=== PATIENT | male | born 1950 | race African-American/Black ===

== ENCOUNTER 2020-02-24 17:01 | Inpatient (IN) | payer MEDICARE, SELFPAY ==
--- NOTE | ~2020-02-24 | XR_ITS ---
EXAMINATION: XR chest 1V portable EXAM DATE: 02/24/2020 17:38 INDICATION: Shortness of breath fever and weakness. TECHNIQUE: Portable AP frontal chest x-ray was obtained. There is no prior study for comparison. FINDINGS: There is approximately 5 cm region of airspace disease in the right midlung zone, appearanc e most consistent with acute bacterial pneumonia. Please clinically correlate. No pleural effusion or pneumothorax. Cardiomediastinal silhouette is normal. There are no osseous abnormalities identified. IMPRESSION: Subsegmental right midlung zone airspace disease probably acute, probably pneumonia. Rec ommend one-month follow-up x-ray to exclude chronic process. Reviewed, dictated and finalized at location A. IMPRESSION: Subsegmental right midlung zone airspace disease probably acute, p robably pneumonia. Recommend one-month follow-up x-ray to exclude chronic proce ss.
--- NOTE | ~2020-02-24 | XR_ITS ---
XR chest 2V DATE: 02/26/2020 08:08 INDICATION: Persistent fever TECHNIQUE: PA and lateral views COMPARISON: 02/24/2020 portable upright AP chest FINDINGS: There is persistent patchy consolidation of the middle lobe, without demonstrable interval radiographic improvement since 03/05/2020 at 1730 hours. The lungs are otherwise clear. Slight right pleural effusion is suggested. Normal heart size. Aortic calcification and unfolding. IMPRESSION: Persistent patchy middle lobe consolidation, stable since 03/05/2020 Reviewed, dictated and finalized at location A.
[2020-02-24 17:06] VITALS: BP 140/82; PULSE 102; RESP 17; TEMP 39.8; O2SAT 99
--- NOTE | 2020-02-24 17:09 | ECG_ITS ---
Measurements Intervals [place] Rate: 99 P: 17 TN: 156 QRS: -30 QRSD: 81 T: 11 QT: 308 QTc: 396 Interpretive Statements SINUS RHYTHM EARLY PRECORDIAL R/S TRANSITION VOLTAGE CRITERIA FOR LVH BORDERLINE T WAVE ABNORMALITY- INFERIOR LEADS BORDERLINE ECG Electronically Signed On 02-24-2020 17:33:57 CDT by Nathen Escalante D.O.
[2020-02-24 17:20] VITALS: BP 153/96; PULSE 100; RESP 22; TEMP 39.2; O2SAT 95
[2020-02-24 17:24] LABS: Basophils Percent Auto 0.2 % (0.2-1.2); Eosinophils Percent Auto 0.2 % (0-4.4); Hematocrit 34.1 % (42.0-52.0); Hemoglobin 11.2 g/dL (14.0-18.0); Immature Granulocyte Absolute 0.03 K/mm3 (0.00-0.031); Immature Granulocyte Percent A 0.3 % (0-0.5); Lymphocytes Absolute Auto 0.88 K/mm3 (0.9-3.2); Lymphocytes Percent Auto 7.4 % (18.3-44.2); Mean Corpuscular HGB Conc 32.8 g/dl (32-36); Mean Corpuscular Hemoglobin 28.7 pg (26-34); Mean Corpuscular Volume 87.4 fl (80-100); Monocytes Absolute Auto 0.9 K/mm3 (0.1-0.6); Monocytes Percent Auto 7.7 % (2.6-8.5); Neutrophils Percent Auto 84.2 % (45.5-73.1); Platelet Count Result 190 k/mm3 (150-375); Red Cell Distribution Width 14.9 % (11.5-14.5); White Blood Count 11.9 K/mm3 (4.5-10.0)
[2020-02-24 17:36] LABS: Anion Gap 12 mmol/L (8-16); Blood Urea Nitrogen 47 mg/dL (9-20); Calcium 9.4 mg/dL (8.4-10.2); Carbon Dioxide 20 mmol/L (22-30); Chloride 104 mmol/L (98-107); Estimated CRCL calculation 20 ml/min; Estimated Glomerular Filt Rate 21; Glucose 110 mg/dL (75-110); Potassium 4.7 mmol/L (3.4-5.0); Sodium 136 mmol/L (137-145)
[2020-02-24] MEDS: ACETAMINOPHEN 500 MG TABLET 1000 MG PO (17:43)
--- NOTE | 2020-02-24 17:51 | ED.FEVER ---
HPI - Fever General Chief Complaint: Fever Stated Complaint: weakness, wants tested for COVID Time Seen by Provider: 02/24/20 17:23 History of Present Illness HPI Narrative: Feeling weak for the past few days. Associated with dyspnea on exertion. Found to be febrile in triage. Denies cough, congestion, nausea, vomiting, back pain, urtinary symptoms, rashes, or wounds. Related Data Home Medications Medication Instructions Recorded Confirmed allopurinol 02/24/20 amlodipine 02/24/20 bumetanide 02/24/20 calcitriol 02/24/20 carvedilol 02/24/20 ferrous sulfate 325 mg PO DAILY 02/24/20 fludrocortisone mg 02/24/20 Allergies Allergy/AdvReac Type Severity Reaction Status Date / Time Penicillins Allergy Unknown Verified 02/24/20 17:18 Review of Systems Review of Systems: All systems reviewed & are unremarkable except as noted in HPI and below Cardiovascular: Cardiovascular: Denies chest pain PMFSH Past Medical History Medical History (Updated 02/24/20 @ 18:37 by Sidney Galeano MD) HTN (hypertension) Social History Social History Gender identity (if verbalized by the patient): Male Exam Const: General: no acute distress and alert Nutritional Appearance: well nourished Orientation/consciousness: patient oriented x3 HENMT: Head: normal to inspection and contusion Chest: Chest palpation & inspection: normal inspection of the chest and no tenderness Resp: Effort & Inspection: normal respiratory effort Auscultation: wheezes right lower Cardio: Rate: regular rate Rhythm: regular rhythm GI: Inspection: non-distended GI Palp: Yes Soft to palpation and No Tenderness to palpation present (GI) Skin: General skin exam: normal color Rashes: no rashes Wounds: no wounds Neuro: General: patient oriented x3, moves all extremities and CN's II-XI intact bilaterally Speech: normal speech Extrem: General: normal to inspection and no edema Course Vital Signs Vital signs: Vital Signs Temperature 39.8 C H 02/24/20 17:06 Pulse Rate 102 H 02/24/20 17:06 Respiratory Rate 17 02/24/20 17:06 Blood Pressure 140/82 02/24/20 17:06 Pulse Oximetry 99 02/24/20 17:06 Temperature 39.2 C H 02/24/20 17:20 Pulse Rate 87 02/24/20 19:06 Respiratory Rate 25 H 02/24/20 19:06 Blood Pressure 132/81 02/24/20 19:06 Pulse Oximetry 95 02/24/20 19:06 MDM - Fever MDM Narrative Medical decision making narrative: He meets sepsis criteria. Chest x-ray concerning for pneumonia. Will test for covid and get cultures. ABX started. Creatinine 3.5. unsure if this is new. Will continue to hydrate. Medical Records Attestation: I reviewed the patient's medical records. Lab Data Attestation: I reviewed the patient's lab results. Result diagrams: 02/24/20 17:12 02/24/20 17:12 Labs: Lab Results 02/24/20 02/24/20 02/24/20 Range/Units 17:12 17:12 17:44 WBC 11.9 H (4.5-10.0) K/mm3 RBC 3.90 L (4.6-6.20) M/mm3 Hgb 11.2 L (14.0-18.0) g/dL Hct 34.1 L (42.0-52.0) % MCV 87.4 (80-100) fl MCH 28.7 (26-34) pg MCHC 32.8 (32-36) g/dl RDW 14.9 H (11.5-14.5) % Plt Count 190 (150-375) k/mm3 MPV 12.0 H (7.4-10.4) fl Immature Gran % (Auto) 0.3 (0-0.5) % Neut % (Auto) 84.2 H (45.5-73.1) % Lymph % (Auto) 7.4 L (18.3-44.2) % [place] % (Auto) 7.7 (2.6-8.5) % Eos % (Auto) 0.2 (0-4.4) % Baso % (Auto) 0.2 (0.2-1.2) % Lymph # (Auto) 0.88 L (0.9-3.2) K/mm3 [place] # (Auto) 0.9 H (0.1-0.6) K/mm3 Eos # (Auto) 0.0 (0-0.3) K/mm3 Baso # (Auto) 0.0 (0.0-0.1) K/mm3 Abs Immat Gran (auto) 0.03 (0.00-0.031) K/mm3 Absolute Neuts (auto) 10.0 H (1.3-6.7) K/mm3 Absolute Nucleated RBC 0.0 (0.0-0.012) K/mm3 Nucleated RBC % 0.0 (0.0-0.2) % Sodium 136 L (137-145) mmol/L Potassium 4.7 (3.4-5.0) mmol/L Chloride 104 (9
[2020-02-24] MEDS: SODIUM CHLORIDE 0.9% IV 1,000 ML 999 ML IV CONT (18:19)
[2020-02-24 18:21] VITALS: BP 140/83; PULSE 91; RESP 28; O2SAT 95
[2020-02-24 19:06] VITALS: BP 132/81; PULSE 87; RESP 25; O2SAT 95
[2020-02-24 19:11] LABS: Add Urine Microscopic? YES; Appearance Urine Clear (Clear); Bilirubin Urine Negative (Negative); Blood Urine Negative (Negative); Color Urine Yellow (Yellow); Glucose Urine UA Negative (Negative); Ketones Urine Negative (Negative); Leukocyte Esterase Ur Negative LEU/UL (Negative); Mucus Urine Rare /lpf; Nitrate Urine Negative (Negative); Protein Urine 3+ mg/dL (Negative); RBC Urine 0-2 /hpf (0-2); Specific Grav Ur 1.018 (1.001-1.035); Urobilinogen Urine Negative mg/dL (<2.0)
[2020-02-24 19:26] LABS: Lactic Acid Reflex 0.6 mmol/L (0.7-2.1)
[2020-02-24 20:51] VITALS: BP 123/69; PULSE 94; RESP 20; TEMP 37.8; O2SAT 98
[2020-02-24 21:20] VITALS: BP 120/63; PULSE 83; RESP 18; TEMP 37.8; O2SAT 98; BMI 27.3
--- NOTE | 2020-02-24 21:20 | ADMGEN ---
This patient, Eliezer Mchugh, was admitted to [facility] Surg Room 328-01. Patient/family oriented to hospital policies and general routines including ID bracelet, bed and alarms, visiting hours, pain management, procedures, bathroom and other care routines, personal items, smoking policy, room service/diet, and visiting hours. Valuables list has been completed. Information on how to activate the Rapid Response Team has been discussed. Patient/Family are encouraged to report perceived risks to care and to ask questions if they do not understand what they are told or what they should do.
[2020-02-24] MEDS: LACTATED RINGERS 1,000 ML 100 ML IV CONT (21:29)
--- NOTE | 2020-02-24 22:38 | PM.IMHP ---
H&P: HPI History of Present Illness Date/Time: 02/24/20 22:45 Chief complaint: weakness Narrative: Eliezer Mchugh is a 69 year old male With a past medical history chronic kidney disease, hypertension and gout who presented to the ER with generalized weakness. The patient reports that he has been feeling more fatigued than usual over the last 4 days. He has noticed a little bit of shortness of breath but denies any cough prior to coming to the ER. Once he got to the ER he did developed a little bit of a cough. He reports that he chronically spitting up phlegm in the middle of the night but this is unchanged from his baseline. He had noticed having a little bit of chills over the last couple of days. He denies any chest pain. For the most part he has been social distant seeing and has only when out of the house to do routine grocery shopping. His daughter and grand children are visiting from [place]. None of them have been ill. he reports that he is usually relatively active in just does not feel like himself. He has been having a mild frontal headache but denies any vision changes. He reports feeling chilled currently and is asking for additional blankets. He has not taken anything at home for his symptoms. He has not noticed any eliciting or relieving factors. Review of Systems Review of Systems: Narrative: 12 systems were reviewed with pertinent positives and negatives per HPI. Except as documented in the HPI, all other systems were reviewed and are negative. 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 Father , in his late 70s Malignant neoplasm of prostate Sibling Breast cancer the patient is the oldest sibling. He has 1 sister who of breast cancer. One sister who is healthy. 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 Calli Gupta Code status: Full code. The patient does not have advanced directives. He would like his to be his surrogate decision maker. Smoking status: Never smoker Alcohol intake: current Alcohol use details: The patient drinks wine occasionally in moderation. Substance use: current Substance use type: marijuana Other substance usage details: usually smokes marijuana daily Last use: 02/21/2020 Living arrangements: with family Additional living arrangements comments: The patient lives with his of 51 years. They have 2 adult children who are healthy. 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 Gender identity (if verbalized by the patient): Male Spiritual care concerns: No Meds Home Medications and Allergies Home Medications Medication Instructions Recorded Confirmed Type allopurinol 300 mg PO DAILY 02/24/20 02/24/20 History amlodipine 10 mg PO DAILY 02/24/20 02/24/20 History bumetanide 1 mg PO EVERY OTHER DAY 02/24/20 02/24/20 History calcitriol 0.5 mcg PO DAILY 02/24/20 02/24/20 History carvedilol 25 mg PO BID 02/24/20 02/24/20 History ferrous sulfate 325 mg PO QMWF 0
[2020-02-25] VITALS (18 sets, daily range): BP systolic 123–159; BP diastolic 65–97; PULSE 80–102; RESP 16–18; TEMP 36.4–39.3; O2SAT 95–99
[2020-02-25] MEDS: carvediloL 25 MG TABLET PO ×3 (00:01→20:42)
[2020-02-25] MEDS: ACETAMINOPHEN 325 MG TABLET 650 MG PO ×4 (00:01→17:36)
[2020-02-25 06:44] LABS: Hematocrit 28.8 % (42.0-52.0); Hemoglobin 9.3 g/dL (14.0-18.0); Mean Corpuscular HGB Conc 32.3 g/dl (32-36); Mean Corpuscular Hemoglobin 28.1 pg (26-34); Mean Platelet Volume 11.3 fl (7.4-10.4); Platelet Count Result 142 k/mm3 (150-375); Red Blood Count 3.31 M/mm3 (4.6-6.20); Red Cell Distribution Width 14.5 % (11.5-14.5); White Blood Count 8.5 K/mm3 (4.5-10.0)
[2020-02-25 06:56] LABS: Anion Gap 6 mmol/L (8-16); Blood Urea Nitrogen 42 mg/dL (9-20); Calcium 8.7 mg/dL (8.4-10.2); Carbon Dioxide 23 mmol/L (22-30); Chloride 106 mmol/L (98-107); Estimated CRCL calculation 21 ml/min; Estimated Glomerular Filt Rate 23; Glucose 122 mg/dL (75-110); Potassium 4.1 mmol/L (3.4-5.0); Sodium 135 mmol/L (137-145)
[2020-02-25] MEDS: LACTATED RINGERS 1,000 ML 100 ML IV CONT (10:06)
[2020-02-25] MEDS: BUMETANIDE 1 MG TABLET PO (10:09)
[2020-02-25] MEDS: FLUDROCORTISONE ACETATE 0.1 MG TABLET PO (10:09)
[2020-02-25] MEDS: FERROUS SULFATE 324 MG TABLET PO (10:10)
[2020-02-25] MEDS: allopurinoL 300 MG TABLET PO (10:10)
[2020-02-25] MEDS: calcitrioL 0.25 MCG CAPSULE 0.5 MCG PO (10:10)
[2020-02-25] MEDS: amLODIPine BESYLATE 5 MG TABLET 10 MG PO (10:10)
[2020-02-25] MEDS: ENOXAPARIN 30 MG/0.3 ML SYRINGE SUB-Q (10:11)
[2020-02-25 12:13] LABS: SARS-CoV-2 RNA PCR Negative
--- NOTE | 2020-02-25 16:24 | PM.IMPN ---
Progress Note: A&P Assessment and Plan (1) Sepsis due to pneumonia: Code(s): J18.9 - Pneumonia, unspecified organism; A41.9 - Sepsis, unspecified organism Status: Acute Assessment and Plan: ----- patient is still febrile with rigors. It has not been 24 hours. his antibiotics were started last night at 7:00 p.m. so it has not been 24 hours with antibiotic therapy. At this time we will continue with antibiotics, antipyretics, and supportive care. COVID-19 is negative. If the patient does not improve, consider chest CT and broadening antibiotics. he has not had any sputum production. PE less likely since he is not hypoxic. Blood cultures pending , white blood cell count improved. (2) Chronic kidney disease: Code(s): N18.9 - Chronic kidney disease, unspecified Status: Acute Assessment and Plan: ----- improved from admission. He follows Dr. Goldstein routinely. His creatinine is usually around 3 According to the patient. monitor (3) CAP (community acquired pneumonia): Code(s): J18.9 - Pneumonia, unspecified organism Status: Acute Assessment and Plan: ----- see plan above. Time Spent With Patient Time with patient: 25 - 35 minutes Subjective Date/time seen: 02/25/20 16:24 Interval history: Pt is a 70-year-old male here for pneumonia. Patient was seen today and states he feels better than he did yesterday but not great. He says his cough and shortness of breath is less. He actually has no shortness of breath sitting and he has walked to the bathroom a few times and not had any than. He is not coughing up any phlegm. He complains of shaking chills and fevers. He denies chest pain, diarrhea, constipation, nausea or vomiting. He says he is eating and drinking well. He does mention that he has chronic kidney disease and his creatinine is usually around 3. He sees Dr. Goldstein and follows with him closely. Review of Systems Review of Systems: All systems reviewed & are unremarkable except as noted in HPI and below Exam Narrative: Exam Narrative: General: Well developed well nourished patient Resting in bed in NAD but with rigors HEENT: normocephalic Neck: supple Neuro: Alert and oriented x4 CV:RRR. Telemetry shows occasional PVCs. NSVT about 2 seconds also noted. Resp: no wheezing or rhonchi. Decreased breath sounds in the right lobe. Able to speak in full sentences without dyspnea on exertion Abd: Soft, non distended. No pain to palpation. Positive bowel sounds Extremities: No swelling, erythema, or pain to palpation. Objective Data Vital Signs Vital Signs: Vital Signs - 24 hr 02/24/20 17:06 02/24/20 17:20 02/24/20 18:21 Temperature 103.6 F H 102.5 F H Pulse Rate 102 H 100 91 Respiratory Rate 17 22 H 28 H Blood Pressure 140/82 153/96 H 140/83 Pulse Oximetry 99 95 95 02/24/20 19:06 02/24/20 20:51 02/24/20 21:20 Temperature 100.1 F H 100.1 F H Pulse Rate 87 94 83 Respiratory Rate 25 H 20 18 Blood Pressure 132/81 123/69 120/63 Pulse Oximetry 95 98 98 02/25/20 00:00 02/25/20 00:01 02/25/20 01:00 Temperature 101.1 F H 101.1 F H 99.4 F Pulse Rate 90 90 Respiratory Rate 18 Blood Pressure 144/76 H Pulse Oximetry 97 02/25/20 04:00 02/25/20 04:12 02/25/20 04:21 Temperature 100.4 F H 100.4 F H Pulse Rate 89 87 Respiratory Rate 18 Blood Pressure 146/81 H Pulse Oximetry 98 02/25/20 05:11 02/25/20 08:00 02/25/20 10:07 Temperature 99.6 F 102.7 F H 102.7 F H Pulse Rate 98 Respiratory Rate 18 Blood Pressure 159/82 H Pulse Oximetry 98 02/25/20 10:11 02/25/20 12:00 02/25/20 13:32 Temperature 102.0 F H 98.5 F Pulse Rate 91 80 Respiratory Rate 16 Blood Pressure 124/65 Pulse Oximetry 99 02/25/20 16:00 Temperature 100.3 F H Pulse Rate 102 H Respiratory Rate 18 Blood Pressure 154/97 H Pulse Oximetry 95 Intake/Output Intake/Output: Intake & Output 02/22/20 02/23/20 0
[2020-02-26] VITALS (11 sets, daily range): BP systolic 137–153; BP diastolic 76–81; PULSE 78–90; RESP 16–20; TEMP 36.5–37.2; O2SAT 97–99
[2020-02-26 06:15] LABS: Basophils Percent Auto 0.1 % (0.2-1.2); Eosinophils Absolute Auto 0.1 K/mm3 (0-0.3); Hematocrit 28.3 % (42.0-52.0); Hemoglobin 9.3 g/dL (14.0-18.0); Immature Granulocyte Absolute 0.03 K/mm3 (0.00-0.031); Immature Granulocyte Percent A 0.4 % (0-0.5); Lymphocytes Absolute Auto 0.63 K/mm3 (0.9-3.2); Lymphocytes Percent Auto 9.2 % (18.3-44.2); Mean Corpuscular HGB Conc 32.9 g/dl (32-36); Mean Corpuscular Hemoglobin 28.5 pg (26-34); Mean Corpuscular Volume 86.8 fl (80-100); Mean Platelet Volume 11.5 fl (7.4-10.4); Monocytes Absolute Auto 0.7 K/mm3 (0.1-0.6); Monocytes Percent Auto 10.8 % (2.6-8.5); Neutrophils Absolute Auto 5.4 K/mm3 (1.3-6.7); Neutrophils Percent Auto 78.5 % (45.5-73.1); Platelet Count Result 166 k/mm3 (150-375); Red Blood Count 3.26 M/mm3 (4.6-6.20); Red Cell Distribution Width 14.4 % (11.5-14.5); White Blood Count 6.9 K/mm3 (4.5-10.0)
[2020-02-26 06:24] LABS: INR 1.1; Prothrombin Time 13.5 Seconds (11.1-14.7)
[2020-02-26 06:25] LABS: Partial Thromboplastin Time 42.3 SECONDS (22.3-36.8)
[2020-02-26 07:18] LABS: Alanine Aminotransferase 21 U/L (4-50); Alkaline Phosphatase 74 U/L (38-126); Anion Gap 7 mmol/L (8-16); Aspartate Amino Transferase 31 U/L (17-59); Bilirubin,Total < 0.1 mg/dL (0.2-1.3); Blood Urea Nitrogen 43 mg/dL (9-20); Calcium 8.9 mg/dL (8.4-10.2); Carbon Dioxide 23 mmol/L (22-30); Chloride 106 mmol/L (98-107); Estimated CRCL calculation 23 ml/min; Estimated Glomerular Filt Rate 25; Glucose 112 mg/dL (75-110); Magnesium 2.2 mg/dL (1.6-2.3); Sodium 136 mmol/L (137-145)
[2020-02-26 07:34] LABS: Potassium 3.7 mmol/L (3.4-5.0)
[2020-02-26 07:48] LABS: CRP 34.1 mg/dL (<1.0)
[2020-02-26] MEDS: FLUDROCORTISONE ACETATE 0.1 MG TABLET PO (09:23)
[2020-02-26] MEDS: amLODIPine BESYLATE 5 MG TABLET 10 MG PO (09:23)
[2020-02-26] MEDS: allopurinoL 300 MG TABLET PO (09:23)
[2020-02-26] MEDS: carvediloL 25 MG TABLET PO ×2 (09:24→20:41)
[2020-02-26] MEDS: calcitrioL 0.25 MCG CAPSULE 0.5 MCG PO (09:24)
[2020-02-26] MEDS: ENOXAPARIN 30 MG/0.3 ML SYRINGE SUB-Q (09:24)
--- NOTE | 2020-02-26 12:04 | PM.IMPN ---
Progress Note: A&P Assessment and Plan (1) Sepsis due to pneumonia: Code(s): J18.9 - Pneumonia, unspecified organism; A41.9 - Sepsis, unspecified organism Status: Acute Assessment and Plan: ----- Secondary to pneumonia. Symptoms and white blood cell count have improved. Will stop IV fluids but continue azithromycin and ceftriaxone. Blood cultures are negative to date and will be monitored until finalized. Awaiting sputum culture. (2) Chronic kidney disease: Code(s): N18.9 - Chronic kidney disease, unspecified Status: Acute Assessment and Plan: ----- improved from admission. He follows Dr. Goldstein routinely. His creatinine is usually around 3 According to the patient. monitor (3) CAP (community acquired pneumonia): Code(s): J18.9 - Pneumonia, unspecified organism Status: Acute Assessment and Plan: ----- see plan above. Subjective Date/time seen: 02/26/20 12:04 Interval history: Pt is a 70-year-old male here for pneumonia. Patient was seen today And doing much better than yesterday. He says that he has not had a fever and is no longer shaking. He has been walking the halls without dyspnea on exertion or shortness of breath. He is eating and drinking well but hates his heart healthy diet. He denies any history of heart disease. He denies chest pain, diarrhea, constipation, nausea or vomiting. Exam Narrative: Exam Narrative: General: Well developed well nourished patient Resting in bed in [facility] HEENT: normocephalic Neck: supple Neuro: Alert and oriented x4 CV:RRR. Resp: no wheezing or rhonchi. Able to speak in full sentences without dyspnea on exertion Abd: Soft, non distended. No pain to palpation. Positive bowel sounds Extremities: No swelling, erythema, or pain to palpation. Objective Data Vital Signs Vital Signs: Vital Signs - 24 hr 02/25/20 13:32 02/25/20 16:00 02/25/20 17:36 Temperature 98.5 F 100.3 F H 100.3 F H Pulse Rate 94 Respiratory Rate 18 Blood Pressure 154/97 H Pulse Oximetry 95 02/25/20 18:36 02/25/20 20:00 02/25/20 20:42 Temperature 98.7 F Pulse Rate 87 94 Respiratory Rate Blood Pressure Pulse Oximetry 02/25/20 22:00 02/26/20 00:00 02/26/20 06:00 Temperature 97.5 F L 98.7 F Pulse Rate 83 78 85 Respiratory Rate 18 16 Blood Pressure 123/66 147/79 H Pulse Oximetry 98 98 02/26/20 09:20 02/26/20 09:24 Temperature 98.9 F Pulse Rate 79 79 Respiratory Rate 18 Blood Pressure 142/81 H Pulse Oximetry 99 Intake/Output Intake/Output: Intake & Output 02/23/20 02/24/20 02/25/20 02/26/20 23:59 23:59 23:59 23:59 Intake Total 1300 1870 840 Output Total 700 1100 Balance 1300 1170 -260 Meds/Results Medications: Active Medications Generic Name Dose Route Start Last Admin Trade Name Freq PRN Reason Stop Dose Admin Acetaminophen 650 mg 02/24/20 22:32 02/25/20 17:36 Tylenol Tablet PO 650 mg Q4H PRN Administration Mild Pain (1-3) or Fever Allopurinol 300 mg 02/25/20 08:00 02/26/20 09:23 Zyloprim PO 300 mg DAILY@0800 DARRELL Administration Amlodipine Besylate 10 mg 02/25/20 09:00 02/26/20 09:23 Norvasc PO 10 mg DAILY DARRELL Administration Bumetanide 1 mg 02/25/20 09:00 02/25/20 10:09 Bumex Po PO 1 mg Q48H DARRELL Administration Calcitriol 0.5 mcg 02/25/20 09:00 02/26/20 09:24 Rocaltrol PO 03/26/20 09:01 0.5 mcg DAILY DARRELL Administration Carvedilol 25 mg 02/25/20 09:00 02/26/20 09:24 Coreg PO 25 mg Q12HR DARRELL Administration Enoxaparin Sodium 30 mg 02/25/20 09:00 02/26/20 09:24 Lovenox SUB-Q 30 mg DAILY DARRELL Administration Ferrous Sulfate 324 mg 02/25/20 08:00 02/25/20 10:10 Ferrous Sulfate PO 324 mg MoWeFr@0800 DARRELL Administration Fludrocortisone Acetate 0.1 mg 02/25/20 08:00 02/26/20 09:23 Florinef PO 0.1 mg DAILY@0800 DARRELL Administration Ceftriaxone
[2020-02-27] VITALS (7 sets, daily range): BP systolic 139–147; BP diastolic 79–85; PULSE 74–83; RESP 18; TEMP 36.5; O2SAT 97–100
[2020-02-27 06:20] LABS: Hematocrit 26.3 % (42.0-52.0); Hemoglobin 8.6 g/dL (14.0-18.0); Mean Corpuscular HGB Conc 32.7 g/dl (32-36); Mean Corpuscular Hemoglobin 28.3 pg (26-34); Mean Corpuscular Volume 86.5 fl (80-100); Mean Platelet Volume 11.7 fl (7.4-10.4); Platelet Count Result 188 k/mm3 (150-375); Red Blood Count 3.04 M/mm3 (4.6-6.20); Red Cell Distribution Width 14.3 % (11.5-14.5); White Blood Count 6.4 K/mm3 (4.5-10.0)
[2020-02-27 06:39] LABS: Alanine Aminotransferase 24 U/L (4-50); Albumin Level 2.9 g/dL (3.5-5.1); Alkaline Phosphatase 73 U/L (38-126); Anion Gap 7 mmol/L (8-16); Aspartate Amino Transferase 34 U/L (17-59); Bilirubin,Total < 0.1 mg/dL (0.2-1.3); Blood Urea Nitrogen 43 mg/dL (9-20); Calcium 8.7 mg/dL (8.4-10.2); Carbon Dioxide 21 mmol/L (22-30); Chloride 108 mmol/L (98-107); Estimated CRCL calculation 25 ml/min; Estimated Glomerular Filt Rate 29; Glucose 135 mg/dL (75-110); Potassium 3.6 mmol/L (3.4-5.0); Sodium 136 mmol/L (137-145)
[2020-02-27 06:53] LABS: CRP 21.9 mg/dL (<1.0)
[2020-02-27] MEDS: calcitrioL 0.25 MCG CAPSULE 0.5 MCG PO (09:37)
[2020-02-27] MEDS: carvediloL 25 MG TABLET PO (09:37)
[2020-02-27] MEDS: amLODIPine BESYLATE 5 MG TABLET 10 MG PO (09:38)
[2020-02-27] MEDS: BUMETANIDE 1 MG TABLET PO (09:38)
[2020-02-27] MEDS: FLUDROCORTISONE ACETATE 0.1 MG TABLET PO (09:39)
[2020-02-27] MEDS: allopurinoL 300 MG TABLET PO (09:39)
[2020-02-27] MEDS: FERROUS SULFATE 324 MG TABLET PO (09:40)
[2020-02-27] MEDS: ENOXAPARIN 30 MG/0.3 ML SYRINGE SUB-Q (09:41)
--- NOTE | 2020-02-27 13:42 | PM.DS ---
DS: Admitting Diagnosis Admitting Diagnosis Admitting Diagnosis: Pneumonia, unspecified organism DS: Discharge Diagnosis Discharge Diagnosis (1) Sepsis due to pneumonia: Code(s): J18.9 - Pneumonia, unspecified organism; A41.9 - Sepsis, unspecified organism Status: Acute Assessment and Plan: ----- Secondary to pneumonia. Symptoms and white blood cell count have improved. blood cultures and sputum cx negative. Patient is to have a follow-up chest x-ray in 1 month after discharge. I called and talked to his primary care doctor Ankita about this. (2) Chronic kidney disease: Code(s): N18.9 - Chronic kidney disease, unspecified Status: Acute Assessment and Plan: ----- improved from admission. He follows Dr. Goldstein routinely. His creatinine is usually around 3 According to the patient. monitor (3) CAP (community acquired pneumonia): Code(s): J18.9 - Pneumonia, unspecified organism Status: Acute Assessment and Plan: ----- see plan above. (4) Sepsis: Code(s): A41.9 - Sepsis, unspecified organism Status: Acute DS: Summary Hospital Course Reason for hospitalization: Pneumonia Hospital Course: Patient is 70-year-old male with chronic kidney disease who presented emergency room for weakness, dyspnea on exertion, and cough. Vitals in the ER were temperature 39.8? C, pulse 102, respiratory rate 17, blood pressure 140/82, pulse ox 99 on room air. Initial white count 11.9. Initial creatinine 3.5, baseline around 3. Chest x-ray showed subsegmental right mid lung airspace disease likely acute pneumonia. Admitted to the hospitalist service and started on azithromycin and ceftriaxone. He improved with this medication and did not require any oxygen. His COVID was negative. The patient felt back to baseline the day of discharge. I spoke with him about getting a follow-up chest x-ray and I called his primary care physician office and let them know. He was educated about the worrisome signs and symptoms to come back to emergency room for was discharged stable condition. Time Spent with Patient Time attestation: Total time spent providing and/or coordinating discharge services:34 min Exam Narrative: Exam Narrative: General: Well developed well nourished patient Resting in bed in NAD HEENT: normocephalic Neck: supple Neuro: Alert and oriented x4 CV:RRR. Resp: no wheezing or rhonchi. Able to speak in full sentences without dyspnea on exertion Abd: Soft, non distended. No pain to palpation. Positive bowel sounds Extremities: No swelling, erythema, or pain to palpation. DS: Data Data Completed and Pending Labs on day of discharge: Labs from last 24 hours 02/27/20 02/27/20 05:43 05:43 WBC 6.4 RBC 3.04 L Hgb 8.6 L Hct 26.3 L MCV 86.5 MCH 28.3 MCHC 32.7 RDW 14.3 Plt Count 188 MPV 11.7 H Sodium 136 L Potassium 3.6 Chloride 108 H Carbon Dioxide 21 L Anion Gap 7 L BUN 43 H Creatinine 2.70 H Estim Creat Clear Calc 25 Estimated GFR 29 L Glucose 135 H Calcium 8.7 Total Bilirubin < 0.1 L Direct Bilirubin 0.0 AST 34 ALT 24 Alkaline Phosphatase 73 C-Reactive Protein 21.9 H Total Protein 6.0 L Albumin 2.9 L Preliminary micro results at discharge 02/24/20 18:20 Blood Culture - Preliminary Blood 02/24/20 18:20 Blood Culture - Preliminary Blood Discharge Plan Discharge Attending physician on discharge: Bonnie Hitchcock Consulting providers: Shane Jain ; Nathen Escalante ; Shamar Aquino Discharging Clinician: Analilia Hannon Patient Disposition: Home, Self-Care Activity: as tolerated Diet: regular Discharge Instructions: -Please take all of your anti-biotics even if you start to feel better -Follow up with your primary care doctor Dr. Luciano in 1-2 weeks about this stay. As discussed, he will need to order a repeat ch
[2020-02-27 16:10] LABS: Legionella pneumophila Ag Ur Not Detected (Not Detected)
[2020-02-27 19:40] LABS: Pneumococcal Antigen Urine Not Detected (Not Detected)
--- NOTE | 2020-02-29 11:09 | PC.NURSE ---
Sputum cx growing normal miguelangel.
--- NOTE | 2020-03-04 15:20 | PC.NURSE ---
Blood cx are negative
== END 2020-02-27 17:02 | disposition home or self-care (01) | DRG 195 ==
LOC: ANHED 19:59 → ANH3MEDSUR 22:44
PROVIDERS: Emergency Medicine; Admitting Provider Internal Medicine; Emergency Provider Emergency Medicine; Visit Provider Physician Assistant
DX: J18.9 Pneumonia, unspecified organism (principal); Z20.828 Contact with and (suspected) exposure to other viral communicable diseases; I12.9 Hypertensive chronic kidney disease with stage 1 through stage 4 chronic kidney disease, or unspecified chronic kidney disease; N18.9 Chronic kidney disease, unspecified; M10.9 Gout, unspecified
CPT/HCPCS: 36415; 71045; 71046; 80048; 80053; 80076; 81001; 83605; 83735; 85025; 85027; 85610; 85730; 86140; 87040; 87070; 87205; 87449; 87635; 87899; 93005; 96365; 96367; 99285; A9270; C9803; J0456; J0696; J1650; J7030; J7120; U0003

== ENCOUNTER 2022-06-25 08:14 | Outpatient (CLI) | payer MEDICARE, SELFPAY ==
--- NOTE | ~2022-06-25 | US_ITS ---
US art doppler w press LE BI INDICATION: Peripheral artery disease TECHNIQUE: Segmental pressures and plethysmographic and Doppler waveforms of the brachial and lower e xtremity arteries were obtained. COMPARISON: None. FINDINGS: Right and left brachial artery pressures of 127 mm Hg. Patient has left-sided fistula and therefore b rachial artery pressure could not be measured. No shift significant pressure gradients are identified in either leg. There is mixed biphasic and triphasic flow in the lower extremities. The right ankle-brachial index (JENNI) is 1.45 (normal >= 0.9-1.0). The right great toe-brachial index (TBI) is 0.81 (normal >= 0.60). The left JENNI is 1.42. The left TBI is 0.72. IMPRESSION: 1. Normal bilateral ankle and toe brachial indices. Reviewed, dictated and finalized at location A. URCE MANAGER
== END 2022-06-25 08:15 | disposition home or self-care (01) ==
PROVIDERS: Visit Provider Podiatrist Foot & Ankle Surgery
DX: I73.9 Peripheral vascular disease, unspecified (principal)
CPT/HCPCS: 93923

== ENCOUNTER 2022-08-02 11:06 | Outpatient (CLI) | payer MEDICARE, SELFPAY ==
[2022-08-02 11:39] LABS: Alanine Aminotransferase 14 U/L (6-50); Aspartate Amino Transferase 23 U/L (17-59)
== END 2022-08-02 11:07 | disposition home or self-care (01) ==
PROVIDERS: Visit Provider Podiatrist Foot & Ankle Surgery
DX: B35.1 Tinea unguium (principal)
CPT/HCPCS: 36415; 84450; 84460

== ENCOUNTER → 2022-11-16 13:47 | Outpatient (CLI) | payer MEDICARE, SELFPAY ==
--- NOTE | ~2022-11-16 | XR_ITS ---
EXAMINATION: XR chest 2V Exam Date/Time: 11/16/2022 14:01 CDT HISTORY: Encounter for screening for respiratory tuberculosis Comparison: 02/26/2020, 02/24/2020. RESULT: Lines, tubes, and devices: None. Lungs and pleura: Minimal bibasilar atelectasis/scar, otherwise clear. Hemidiaphragm flattening. Cardiomediastinal silhouette: Stable. Other: No acute osseous or upper abdominal finding. IMPRESSION: No acute cardiopulmonary process. Emphysematous change. Reviewed, dictated and finalized at location K.
== END ==
DX: Z11.1 Encounter for screening for respiratory tuberculosis (principal)
CPT/HCPCS: 71046

== ENCOUNTER 2024-04-23 11:15 | Outpatient (RCR) | payer MEDICARE, SELFPAY ==
[2023-12-27 15:51] VITALS: PULSE 84
== END 2024-04-23 23:59 | disposition home or self-care (01) ==
LOC: ANHCPREHAB 11:15
DX: Z95.5 Presence of coronary angioplasty implant and graft (principal)
CPT/HCPCS: 93798

== ENCOUNTER 2024-05-21 11:15 | Outpatient (RCR) | payer MEDICARE, SELFPAY ==
[2024-04-26 00:04] VITALS: PULSE 84
== END 2024-07-25 10:22 | disposition home or self-care (01) ==
LOC: ANHCPREHAB 11:15
DX: Z95.5 Presence of coronary angioplasty implant and graft (principal)
CPT/HCPCS: 93798